=== PATIENT | male | born 1975 | race Caucasian/White ===

== ENCOUNTER 2020-06-26 17:03 | Emergency (ER) | payer OTHER ==
[~2020-06-26 17:03] MED LIST: AMOXICILLIN875 MG PO; BUSPIRONE HCL15 MG PO; FIORICET1 EACH PO; FLEXERIL10 MG PO; HYDROXYZINE PAM50 M1 PO; ONDANSETRON ODT4 MG PO; PRILOSEC20 MG PO; PRINIVIL10 MG PO; XANAX0.25 M1 PO
[2020-06-26 17:25] LABS: BASOPHIL 0.2 % (0-2); EOSINOPHIL 0.7 % (0-5); HCT 42.5 % (42.0-52.0); HGB 14.6 g/dl (13.2-18.0); LYMPHOCYTE 17.9 % (15-48); MCH 29.3 pg (25.0-31.0); MCHC 34.4 g/dL (32.0-36.0); MCV 85.3 fL (78.0-100.0); MONOCYTE 6.9 % (0-12); MPV 11.2 fL (6.0-9.5); NEUTROPHIL 73.9 % (41-80); NRBC 0; PLT 260 K/uL (150-400); RBC 4.98 M/uL (4.70-6.00); RDW 13.6 % (11.5-14.0); WBC 12.2 K/uL (4.0-10.5)
[2020-06-26 17:35] LABS: BUN/CREAT RATIO (CALC) 19.6 RATIO; CREATININE 1.02 mg/dL (0.67-1.17); POTASSIUM 3.1 mmol/L (3.5-5.1)
[2020-06-26 17:44] LABS: CKMB 0.8 ng/mL (0.0-3.6)
== END 2020-06-26 18:51 | disposition home or self-care (01) ==
LOC: FER 17:03
PROVIDERS: Emergency Medicine
DX: F41.1 Generalized anxiety disorder (principal); R07.89 Other chest pain
CPT/HCPCS: 36415; 71046; 80048; 82553; 84484; 85025; 93005